=== PATIENT | male | born 1970 | race Caucasian/White ===

== ENCOUNTER 2017-05-31 22:07 | Emergency (ER) | payer BC ==
[2017-05-31] MEDS ORDERED: Ondansetron INJ* 2 MG/ML VIAL IV ONE (22:13)
[2017-05-31] MEDS ORDERED: NS 0.9% 1000 ML* 2,000 ML IV ONE (22:31)
[2017-05-31] MEDS ORDERED: Acetaminophen TAB* 325 MG PO ONE (22:32)
--- NOTE | 2017-05-31 22:35 | ED ---
Influenza-Like Illness - HPI Summary HPI Summary: Pt here w/ fatigue, sweats alternating with rigors, nausea and cough - aching all over (06/06 at present). Feels increased heart rate and feels dehydrated. Diagnosed with Influenza A yesterday and has taken 2 doses of tamiflu thus far. Has been taking ibuprofen 600mg q 6 hours for pain, fever. Also reports he was diagnosed with sinus infection 10 days ago and started on Levaquin. His nasal d /c was purulent then but has been clear and copious since. Has cough and back pain as well. Has required use of albuterol in the past but has not needed with current illness. No other pertinent medical issues. - History of Current Complaint Chief Complaint: EDFluSymptoms Time Seen by Provider: 05/31/17 22:12 Hx Obtained From: Patient - Allergy/Home Medications Allergies/Adverse Reactions: Allergies Allergy/AdvReac Type Severity Reaction Status Date / Time MS Penicillins [PCN] Allergy Unknown Verified 08/13/13 19:26 Reaction Details PMH/Surg Hx/FS Hx/Imm Hx Previously Healthy: Yes Endocrine/Hematology History: Denies: Autoimmune Disease Respiratory History: Reports: Other Respiratory Problems/Disorders - uses albuterol with URI at times Musculoskeletal History: Reports: Hx Osteoporosis - osteopenia Infectious Disease History: No Infectious Disease History: Denies: Traveled Outside the [place] in Last 30 Days - Family History Known Family History: Positive: Cardiac Disease - CAD, Diabetes - mom, dad - Social History Occupation: Employed Full-time - hospitalist, truck driver instructor Lives: With Family Alcohol Use: None Hx Substance Use: No Substance Use Type: Reports: None Hx Tobacco Use: No Smoking Status (MU): Never Smoked Tobacco Review of Systems Positive: Fever, Chills, Fatigue Eyes: Negative Negative: Photophobia, Blurred Vision, Diplopia Positive: Nasal Discharge Negative: Chest Pain Positive: Cough. Negative: Shortness Of Breath Positive: Nausea. Negative: Abdominal Pain, Vomiting, Diarrhea Genitourinary: Other - has not urinated in 12 hours Positive: Arthralgia Skin: Negative Neurological: Other - reports having poor recall about events earlier today Positive: Headache Psychological: Normal All Other Systems Reviewed And Are Negative: Yes Physical Exam Triage Information Reviewed: Yes Vital Signs On Initial Exam: Initial Vitals Temp Pulse Resp BP Pulse Ox 98.5 F 100 18 124/74 98 05/31/17 22:17 05/31/17 22:17 05/31/17 22:17 05/31/17 22:17 05/31/17 22:17 Vital Signs Reviewed: Yes Appearance: Positive: Well-Nourished, Ill-Appearing, Pain Distress - mild Skin: Positive: Warm, Skin Color Reflects Adequate Perfusion - moist, clammy Head/Face: Positive: Normal Head/Face Inspection - sinuses NTTP Eyes: Positive: Normal, EOMI, SANDRA, Conjunctiva Clear. Negative: Conjunctiva Inflammed, Discharge ENT: Positive: Hearing grossly normal, Pharynx normal - mucosa moist, Nasal congestion, TMs normal. Negative: Tonsillar swelling, Tonsillar exudate Neck: Positive: Supple, Nontender Respiratory/Lung Sounds: Positive: Clear to Auscultation, Breath Sounds Present. Negative: Rales, Rhonchi, Wheezes Cardiovascular: Positive: Pulses are Symmetrical in both Upper and Lower Extremities, Tachycardia, S1, S2. Negative: Murmur, Rub Abdomen Description: Positive: Nontender, No Organomegaly, Soft Bowel Sounds: Positive: Present Musculoskeletal: Positive: Normal, Strength/ROM Intact Neurological: Positive: Normal, Sensory/Motor Intact, Alert, Oriented to Person Place, Time, CN Intact II-III Psychiatric: Positive: Normal Diagnostics - Vital Signs Vital Signs Temp Pulse Resp BP Pulse Ox 05/31/17 22:17 98.5 F 100 18 124/74 98 - Laboratory Result Diagrams: 05/31/17 22:15 05/31/17 22:15 Lab Statement: Any lab studies that have been ordered have been reviewed, and results considered in the medical decision making process. Re-Evaluation - Re-Evaluation First Eval Change: Improved - pt able to urinate - color is light yellow and clear w/ clarity; still does not feel well but has improved some Flu Symptom Course/Dx - Course Course Of Treatment: Patient presents with influenza A. He's had 2 doses of Tamiflu thus far (started yesterday) - feels dehydrated and run down tonight. His labs are unremarkable for significant pathology. He was given 2 L normal saline, Zofran and acetaminophen. Is able to urinate and ambulate without difficulty. Feels safe to return home. Will complete course of tamiflu and f/u w/ PCP as needed, return to ED for danger s/sx. - Diagnoses Provider Diagnoses: Dehydration, Influenza A Discharge - Discharge Plan Condition: Stable Disposition: HOME Prescriptions: Ondansetron ODT TAB* [Zofran 4 MG Odt TAB*] 8 mg PO Q8H PRN #10 tab.odt PRN Reason: Nausea Patient Education Materials: Dehydration (ED), Influenza (ED) Referrals: No Primary Care Phys,NOPCP [Primary Care Provider] - Additional Instructions: Complete tamiflu Implement supportive care Return to ED as needed
[2017-05-31 22:43] LABS: ABS Basophils 0.1 10^3/ul (0-0.2); ABS Eosinophils 0.5 10^3/ul (0-0.6); ABS Lymphocytes 0.7 10^3/ul (1.0-4.8); ABS Monocytes 1.1 10^3/ul (0-0.8); ABS Neutrophils 11.4 10^3/ul (1.5-7.7); ABS Nucleated RBC 0 10^3/ul; Eosinophil % 3.7 % (0-6); Hematocrit 43 % (42-52); Hemoglobin 14.6 g/dl (14.0-18.0); Lymphocyte % 5.1 % (25-47); Mean Corpuscular HGB Conc 34 g/dl (31-36); Mean Corpuscular Hemoglobin 30 pg (27-31); Mean Corpuscular Volume 88 fL (80-94); Mean Platelet Volume 8 um3 (7.4-10.4); Nucleated Red Blood Cells % 0; Platelet Count 263 10^3/ul (150-450); Red Blood Count 4.83 10^6/ul (4.0-5.4); Red Cell Distribution Width 13 % (10.5-15); White Blood Count 13.9 10^3/ul (3.5-10.8)
[2017-05-31 22:53] LABS: EGFR Non-African American 77.7 (>60)
[2017-06-01 00:56] VITALS: BP 101/62
== END 2017-06-01 00:56 | disposition home or self-care (01) ==
LOC: ED 22:07
DX: J11.1 Influenza due to unidentified influenza virus with other respiratory manifestations (principal); E86.0 Dehydration; R11.0 Nausea; R05 Cough
CPT/HCPCS: 36415; 80053; 83605; 83735; 85025; 96374; 99283; A9270-GY; J2405